=== PATIENT | male | born 1945 | race Caucasian/White ===

== ENCOUNTER 2021-06-14 10:23 | Emergency (ER) | payer OTHER ==
[~2021-06-14] VITALS: Ht 180.3 cm; Wt 77.1 kg
[2021-06-14 12:36] LABS: CALCIUM 8.9 mg/dL (8.5-10.1); CREATININE 0.9 mg/dL (0.7-1.3); POTASSIUM 3.8 mmol/L (3.5-5.1)
[2021-06-14 14:05] VITALS: BP 174/72
--- NOTE | 2021-06-14 14:33 | EKG ---
[place] [address] [facility] [place] [address] ELECTROCARDIOGRAM REPORT Name: CATY OGLESBY Room #: [facility] Roque#: [id number] Admission: 06/14/21 Attend Phys: Discharge: 06/14/21 Date of : 49 Report #: [id number] [facility] ED Test Date: 2021-06-14 Test Time: 10:33:11 Pat Name: CATY OGLESBY Department: Room: Gender: M Cath Lab Manager: NILDA : 1945 Requested By: Yaniv Morales Order Number: [id number] MD: Neymar Bennett Measurements Intervals [place] Rate: 71 P: -5 RI: 170 QRS: -41 QRSD: 100 T: 40 QT: 389 QTc: 423 Interpretive Statements Sinus rhythm Left axis deviation Abnormal R-wave progression, early transition No previous ECG available for comparison Electronically Signed On 06-14-2021 14:33:01 CDT by Neymar Bennett [email or web address] <ELECTRONICALLY SIGNED> By: Neymar Bennett MD, [facility] 06/14/21 1433 1033 1033 Neymar Bennett MD, FACC /EPI
== END 2021-06-14 14:06 | disposition home or self-care (01) ==
LOC: ER 10:23
PROVIDERS: Student in an Organized Health Care Education/Training Program
DX: S01.511A Laceration without foreign body of lip, initial encounter (principal); W18.12XA Fall from or off toilet with subsequent striking against object, initial encounter; Y93.89 Activity, other specified; Y92.89 Other specified places as the place of occurrence of the external cause; Y99.8 Other external cause status